=== PATIENT | female | born 2000 | race Caucasian/White ===

== ENCOUNTER 2018-11-06 07:58 | Emergency (ER) | payer OTHER ==
[~2018-11-06] VITALS: Ht 162.6 cm; Wt 56.1 kg
[2018-11-06 08:01] VITALS: BP 136/92; PULSE 72; RESP 18; Ht 162.6 cm; Wt 56.1 kg
[2018-11-06] MEDS ORDERED: IBUPROFEN 600 MG TAB PO ONE (09:00)
[2018-11-06] MEDS ORDERED: LORAZEPAM 1 MG TAB PO ONE (09:00)
[2018-11-06] MEDS ORDERED: ACET500C5 PO (09:20)
[2018-11-06] MEDS ORDERED: IBUP-1561 PO (09:20)
[2018-11-06] MEDS ORDERED: CYCL10TA7 PO (09:20)
--- NOTE | 2018-11-06 10:51 | ERD ---
ER Documentation Chief Complaint Chief Complaint RIGHT SIDE BACK/FLANK PAIN ON AND OFF FOR 2 DAYS. HPI 17-year-old female presents to the ED complaining of intermittent achy right lumbar back pain that radiates down to the buttock for the past 2 days. Patient states the pain is worse with movement. She denies fevers, dysuria, hematuria. Denies saddle anesthesia, bladder or bowel incontinence. States that she has not taken medications for this. ROS All systems reviewed and are negative except as per history of present illness. Medications Home Meds Active Scripts Acetaminophen* (Tylophen*) 500 Mg Capsule, 1 CAP PO Q4 PRN for PAIN AND OR ELEVATED TEMP, #30 CAP Prov:CLARISSA UNDERWOOD PA-C 11/06/18 Cyclobenzaprine Hcl* (Cyclobenzaprine Hcl*) 10 Mg Tablet, 10 MG PO TID, #30 TAB Prov:CLARISSA UNDERWOOD PA-C 11/06/18 Ibuprofen* (Motrin*) 400 Mg Tab, 400 MG PO Q6H PRN for PAIN AND OR ELEVATED TEMP, #30 TAB Prov:CLARISSA UNDERWOOD PA-C 11/06/18 Allergies Allergies: Coded Allergies: No Known Allergy (Unverified , 11/06/18) PMhx/Soc Medical and Surgical Hx: pt denies Medical Hx, pt denies Surgical Hx Hx Alcohol Use: No Hx Substance Use: No Hx Tobacco Use: No Smoking Status: Never smoker Physical Exam Vitals Vital Signs Date Temp Pulse Resp B/P (MAP) Pulse Ox O2 O2 Flow FiO2 Time Delivery Rate 11/06/18 97.5 72 18 136/92 100 08:01 (107) Physical Exam Const: No acute distress Head: Atraumatic Eyes: Normal Conjunctiva ENT: Normal External Ears, Nose and Mouth. Neck: Full range of motion. No meningismus. Resp: Clear to auscultation bilaterally Cardio: Regular rate and rhythm, no murmurs Abd: Soft, non tender, non distended. Normal bowel sounds Skin: No petechiae or rashes Back: No midline or flank tenderness, tenderness to palpation in the right lumbar and buttock region, full range of motion but pain with range of motion Ext: No cyanosis, or edema Neur: Awake and alert Psych: Normal Mood and Affect Results 24 hrs Laboratory Tests Test 11/06/18 08:48 11/06/18 09:08 Urine Color STRAW Urine Clarity SLIGHTLY CLOUDY Urine pH 7.0 Urine Specific [place] 1.008 Urine Ketones NEGATIVE mg/dL Urine Nitrite NEGATIVE mg/dL Urine Bilirubin NEGATIVE mg/dL Urine Urobilinogen NEGATIVE mg/dL Urine Leukocyte Esterase NEGATIVE Moody/ul Urine Microscopic RBC 2 /HPF Urine Microscopic WBC 0 /HPF Urine Squamous Epithelial Cells FEW /HPF Urine Bacteria FEW /HPF Urine Hemoglobin NEGATIVE mg/dL Urine Glucose NEGATIVE mg/dL Urine Total Protein NEGATIVE mg/dl POC Beta HCG, Qualitative NEGATIVE Current Medications Medications Dose Sig/Thierno Start Time Status Last (Trade) Ordered Route PRN Stop Time Admin Dose Reason Admin Lorazepam 1 mg ONCE ONCE 11/06/18 DC 11/06/18 (Ativan) PO 09:00 08:58 11/06/18 09:01 Ibuprofen 600 mg ONCE ONCE 11/06/18 DC 11/06/18 (Motrin) PO 09:00 08:58 11/06/18 09:01 Procedures/MDM This is a 17-year-old female presenting to the ED complaining of right lumbar and buttock pain intermittently for the past 2 days, is likely due to sprain strain. I doubt any acute emergent pathology at this time. I doubt pyelonephritis. Patient is afebrile, well-appearing is neurovascular tach to be discharged home to follow-up with primary care physician for physical therapy and orthopedic she was given prescription for Flexeril and ibuprofen. Return precautions have been given she understands agrees this plan Departure Diagnosis: Primary Impression: Lumbar back pain Condition: Stable Patient Instructions: Back Care Tips, Back Pain (Acute Or Chronic), Back Sprain/Strain Referrals: NO PRIMARY,CARE PHYSICIAN Additional Instructions: FOLLOW UP WITH YOUR PRIMARY CARE PHYSICIAN TOMORROW.Return to this facility if you are not improving as expected. You may need referral for physical therapy Take all medicines as directed. You have been given a medicine which may cause drowsiness.DO NOT DRIVE OR OPERATE DANGEROUS MACHINERY while taking this medicine! CLARISSA UNDERWOOD PA-C Nov 06, 2018 10:51
== END 2018-11-06 10:09 | disposition home or self-care (01) ==
LOC: FTE 07:58
DX: M54.5 Low back pain (principal)
CPT/HCPCS: 81001; 81025; Z7502; Z7610; 81003; 99283